=== PATIENT | male | born 1955 ===

== ENCOUNTER 2025-01-22 14:00 | Outpatient (RCR) | payer OTHER, SELFPAY | END 2025-01-22 23:59 | disposition home or self-care (01) | LOC: PRC 14:00 | PROVIDERS: Visit Provider Physician Assistant Surgical | DX: Z51.89 Encounter for other specified aftercare (principal); E88.01 Alpha-1-antitrypsin deficiency; J45.909 Unspecified asthma, uncomplicated; J44.9 Chronic obstructive pulmonary disease, unspecified | CPT/HCPCS: 94626 ==

== ENCOUNTER 2025-02-19 14:00 | Outpatient (RCR) | payer OTHER, SELFPAY | END 2025-02-22 23:59 | disposition home or self-care (01) | LOC: PRC 14:00 | PROVIDERS: Visit Provider Physician Assistant Surgical | DX: E88.01 Alpha-1-antitrypsin deficiency; Z51.89 Encounter for other specified aftercare | CPT/HCPCS: 94626 ==